=== PATIENT | female | born 1985 | race African-American/Black ===

== ENCOUNTER 2018-09-26 16:44 | Inpatient (IN) | payer OTHER ==
[~2018-09-26] VITALS: Ht 182.9 cm; Wt 131.6 kg
[2018-09-26 18:34] VITALS: BP 125/82; PULSE 71; RESP 17
[2018-09-26 19:04] VITALS: Ht 182.9 cm; Wt 131.6 kg
[2018-09-26] MEDS ORDERED: ACETAMINOPHEN 325 MG TAB PO PRN (19:30)
[2018-09-26] MEDS ORDERED: NACL 0.9% 3 ML SYG IV SCH (19:30)
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
[2018-09-26 20:00] VITALS: BP 123/68; PULSE 74; RESP 18
[2018-09-26] MEDS: PIPER-TAZO 3.375 GM IV (PMX) 100 ML IVPB SCH (20:42)
[2018-09-27] MEDS: PIPER-TAZO 3.375 GM IV (PMX) 100 ML IVPB SCH ×4 (00:59→17:53)
[2018-09-27 02:00] VITALS: BP 119/67; PULSE 70; RESP 18
[2018-09-27 08:12] VITALS: BP 129/75; PULSE 73; RESP 18
[2018-09-27] MEDS: IBUPROFEN 600 MG TAB PO PRN (09:11)
[2018-09-27] MEDS: ENOXAPARIN 40 MG/0.4 ML SYG SC SCH (09:12)
[2018-09-27] MEDS: traMADol 50 MG TAB PO PRN (14:26)
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
[2018-09-27 14:58] VITALS: BP 130/73; PULSE 80; RESP 17
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
[2018-09-27 20:24] VITALS: BP 116/57; PULSE 84; RESP 18
[2018-09-28] MEDS: PIPER-TAZO 3.375 GM IV (PMX) 100 ML IVPB SCH ×4 (00:33→18:32)
[2018-09-28 02:29] VITALS: BP 120/72; PULSE 68; RESP 20
[2018-09-28 08:03] VITALS: BP 120/80; PULSE 76; RESP 16
[2018-09-28] MEDS: traMADol 50 MG TAB PO PRN (09:16)
[2018-09-28] MEDS: ENOXAPARIN 40 MG/0.4 ML SYG SC SCH (09:18)
[2018-09-28] MEDS: HYDROCODONE/APAP (5/325) TAB PO PRN ×2 (12:32→18:28)
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
[2018-09-28 14:30] VITALS: BP 122/74; PULSE 72; RESP 16
[2018-09-28 20:25] VITALS: BP 116/70; PULSE 68; RESP 18
[2018-09-28] MEDS: ONDANSETRON 4 MG INJ IV PRN (20:57)
[2018-09-28] MEDS ORDERED: HYDROCODONE/APAP (5/325) TAB PO PRN (22:30)
[2018-09-29] VITALS (22 sets, daily range): BP systolic 104–144; BP diastolic 65–88; PULSE 52–70; RESP 10–77
[2018-09-29] MEDS: PIPER-TAZO 3.375 GM IV (PMX) 100 ML IVPB SCH ×4 (00:05→20:24)
[2018-09-29] MEDS: ENOXAPARIN 40 MG/0.4 ML SYG SC SCH (07:48)
[2018-09-29] MEDS: morphine 2 MG INJ IV PRN ×2 (12:39→20:24)
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
--- NOTE | 2018-09-29 16:55 | HPN ---
Date/Time of Note Date/Time of Note DATE: 09/29/18 TIME: 16:55 Interval H&P Admission Note Pt. seen H&P reviewed: No system changes CORBIN VELEZ DPM Sep 29, 2018 16:55
--- NOTE | 2018-09-29 17:12 | PREAC ---
Date/Time of Note Date/Time of Note DATE: 09/29/18 TIME: 17:11 Anesthesia Eval and Record Evaluation Time Pre-Procedure Interview DATE: 09/29/18 TIME: 17:11 Age 33 Sex female NPO: 8 hrs Preoperative diagnosis RIGHT LOWER EXTREMITY CELLULITIS Planned procedure DEBRIDEMENT OF RIGHT LOWER EXTREMITY CELLULITIS Past Medical History Past Medical History: Includes GI: Morbid obesity Surgery & Anesthesia Issues No known issue Meds Anticoagulation: No Beta Boni within 24 hr: No Reason Beta Boni not given: Pt. not on B-Boni Current Medications IV Flush (NS 3 ml) 3 ml PER PROTOCOL IV ; Start 09/26/18 at 19:30 Ondansetron HCl (Zofran Inj) 4 mg Q6H PRN IV NAUSEA/VOMITING Last administered on 09/28/18at 20:57; Admin Dose 4 MG; Start 09/26/18 at 19:30 Acetaminophen (Tylenol Tab) 650 mg Q6H PRN PO .PAIN 1-3 OR TEMP; Start 09/26/18 at 19:30 Ibuprofen (Motrin) 600 mg Q6H PRN PO .PAIN 1-3; Start 09/26/18 at 19:30 Enoxaparin Sodium (Lovenox) 40 mg DAILY SC Last administered on 09/28/18at 09:18; Admin Dose 40 MG; Start 09/27/18 at 09:00 Piperacillin Sod/ Tazobactam Sod 100 ml @ 200 mls/hr Q6 IVPB Last administered on 09/29/18at 12:35; Admin Dose 200 MLS/HR; Start 09/26/18 at 19:30 Acetaminophen/ Hydrocodone Bitart ([place] (5/325)) 1 tab Q4H PRN PO MODERATE PAIN LEVEL 4-6 Last administered on 09/28/18at 22:35; Admin Dose 1 TAB; Start 09/28/18 at 22:30 Morphine Sulfate (morphine) 1 mg Q6H PRN IV SEVERE PAIN LEVEL 7-10 Last administered on 09/29/18at 12:39; Admin Dose 1 MG; Start 09/29/18 at 12:00 Meds reviewed: Yes Allergies Coded Allergies: No Known Allergy (Unverified , 09/26/18) Allergies Reviewed: Yes Labs/Studies Labs Reviewed: Reviewed by anesthesiologist Result Diagram: 09/26/18193209/28/18518 test: Negative Pre-procedure Exam Last vitals Vital Signs Date Temp Pulse Resp B/P (MAP) Pulse Ox O2 O2 Flow FiO2 Time Delivery Rate 09/29/18 98.4 62 16 120/78 98 Room Air 14:00 (92) Airway: Adequate mouth opening, Adequate thyromental dist Mallampati: Mallampati II Teeth: Normal Lung: Normal Heart: Normal ASA Physical Status ASA physical status: 2 Emergency: None Planned Anesthetic General/MAC: LMA Planned Pain Management Parenteral pain med Pre-operative Attestations Prior to commencing anesthesia and surgery, the patient was re-evaluated, there was verification of: *The patient's identity *The results of appropriate recent lab work and preoperative vital signs *The above evaluation not changing prior to induction *Anesthetic plan, risk benefits, alternative and complications discussed with patient/family; questions answered; patient/family understands, accepts and wishes to proceed. ONEL WEEKS Sep 29, 2018 17:12
[2018-09-29] MEDS ORDERED: PROPOFOL 0 ML ONE (17:17)
[2018-09-29] MEDS ORDERED: LIDOCAINE 2% (SDV) 5 ML INJ ONE (17:17)
[2018-09-29] MEDS ORDERED: PROPOFOL 100 ML ONE (17:18)
[2018-09-29] MEDS ORDERED: DEXAMETHASONE 4 MG/ML 5 ML INJ ONE (17:42)
[2018-09-29] MEDS ORDERED: LIDOCAINE 1% (MPF) 30 ML INJ ONE (17:43)
[2018-09-29] MEDS ORDERED: BUPIVACAINE 0.25% (MPF) 30 ML INJ ONE (17:43)
[2018-09-29] MEDS ORDERED: ONDANSETRON 4 MG INJ ONE (17:43)
[2018-09-29] MEDS ORDERED: POLYMYXIN/BACITRACIN 1L IRRIG ONE (17:48)
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
--- NOTE | 2018-09-29 18:18 | PAC ---
Date/Time of Note Date/Time of Note DATE: 09/29/18 TIME: 18:17 Post-Anesthesia Notes Post-Anesthesia Note Last documented vital signs Vital Signs Date Temp Pulse Resp B/P (MAP) Pulse Ox O2 O2 Flow FiO2 Time Delivery Rate 09/29/18 98.4 62 16 120/78 98 Room Air 1817 (92) Activity: WNL Respiratory function: WNL Cardiovascular function: WNL Mental status: Baseline Pain reasonably controlled: Yes Hydration appropriate: Yes Nausea/Vomiting absent: Yes ONEL WEEKS Sep 29, 2018 18:18
[2018-09-29] MEDS ORDERED: HYDROmorphONE 1 MG/5 ML IV SYRINGE IV PRN ×3 (18:30)
[2018-09-29] MEDS ORDERED: EPHEDrine SULFATE 50 MG/5 ML SYG IV PRN (18:30)
[2018-09-29] MEDS ORDERED: MIDAZOLAM 1 MG/ML 2 ML INJ IV PRN (18:30)
[2018-09-29] MEDS ORDERED: METOCLOPRAMIDE 10 MG INJ IV PRN (18:30)
[2018-09-29] MEDS ORDERED: ALBUTEROL 0.083% (NEB) 2.5 MG/3 ML AMP HHN PRN (18:30)
[2018-09-29] MEDS ORDERED: ONDANSETRON 4 MG INJ IV PRN (18:30)
[2018-09-29] MEDS ORDERED: DIPHENHYDRAMINE 50 MG INJ IV PRN (18:30)
[2018-09-29] MEDS ORDERED: MEPERIDINE 25 MG INJ IV PRN (18:30)
[2018-09-29] MEDS ORDERED: LABETALOL HCL 20MG INJ IV PRN (18:30)
[2018-09-29] MEDS ORDERED: FENTAnyl 50 MCG/ML VIAL IV PRN ×3 (18:30)
[2018-09-29] MEDS ORDERED: OXYCODONE/ACETAMINOPHEN (5/325) TAB PO PRN ×2 (18:30)
[2018-09-29] MEDS ORDERED: hydrALAzine 20 MG INJ IV PRN (18:30)
[2018-09-29] MEDS: ONDANSETRON 4 MG INJ IV PRN (22:30)
[2018-09-29] MEDS: HYDROmorphONE 1 MG/ML SYG IV PRN (23:18)
[2018-09-30] MEDS: PIPER-TAZO 3.375 GM IV (PMX) 100 ML IVPB SCH ×4 (00:11→17:13)
[2018-09-30 01:57] VITALS: BP 121/71; PULSE 61; RESP 18
[2018-09-30] MEDS: HYDROmorphONE 1 MG/ML SYG IV PRN ×5 (03:35→20:42)
[2018-09-30 07:42] VITALS: BP 131/81; PULSE 62; RESP 18
[2018-09-30] MEDS: ONDANSETRON 4 MG INJ IV PRN ×2 (07:44→11:49)
[2018-09-30 08:00] VITALS: BP 137/94; PULSE 86; RESP 20
[2018-09-30] MEDS: ENOXAPARIN 40 MG/0.4 ML SYG SC SCH (08:42)
[2018-09-30 14:00] VITALS: BP 130/84; PULSE 84; RESP 20
[2018-09-30] MEDS: IBUPROFEN 600 MG TAB PO PRN (14:59)
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
[2018-09-30] MEDS ORDERED: TRIMETHOBENZAMIDE 100 MG/ML VIAL IM PRN (15:30)
[2018-09-30] MEDS: ONDANSETRON INJ 8 MG in SOD CHLORIDE 0.9% 50 ML IV PRN ×2 (16:11→20:42)
[2018-09-30] MEDS ORDERED: HYDROCODONE/APAP (5/325) TAB PO PRN (16:30)
[2018-09-30] MEDS ORDERED: HYDROmorphONE 1 MG/ML SYG IV PRN (17:30)
[2018-09-30] MEDS ORDERED: ONDANSETRON 4 MG INJ IV PRN (18:00)
[2018-09-30 21:28] VITALS: BP 125/67; PULSE 62; RESP 18
[2018-10-01] MEDS: PIPER-TAZO 3.375 GM IV (PMX) 100 ML IVPB SCH ×5 (00:10→23:29)
[2018-10-01 02:50] VITALS: BP 106/69; PULSE 55; RESP 18
[2018-10-01 08:00] VITALS: BP 116/75; PULSE 84; RESP 20
[2018-10-01] MEDS: ONDANSETRON INJ 8 MG in SOD CHLORIDE 0.9% 50 ML IV PRN ×3 (08:03→20:23)
[2018-10-01] MEDS: HYDROmorphONE 4 MG TAB PO PRN ×2 (08:04→20:23)
[2018-10-01] MEDS: ENOXAPARIN 40 MG/0.4 ML SYG SC SCH (09:39)
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
[2018-10-01] MEDS: HYDROmorphONE 1 MG/ML SYG IV PRN (12:06)
[2018-10-01 14:00] VITALS: BP 121/75; PULSE 93; RESP 20
[2018-10-01] MEDS ORDERED: MAGNESIUM HYDROXIDE 30ML CUP PO PRN (16:00)
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
[2018-10-01] MEDS ORDERED: METOCLOPRAMIDE 10 MG INJ IV PRN (17:30)
[2018-10-01 20:23] VITALS: BP 115/68; PULSE 68; RESP 18
[2018-10-02] MEDS: HYDROmorphONE 4 MG TAB PO PRN ×3 (01:14→14:40)
[2018-10-02] MEDS: ONDANSETRON INJ 8 MG in SOD CHLORIDE 0.9% 50 ML IV PRN ×3 (01:14→14:40)
[2018-10-02 03:22] VITALS: BP 101/52; PULSE 62; RESP 18
[2018-10-02] MEDS: PIPER-TAZO 3.375 GM IV (PMX) 100 ML IVPB SCH ×3 (05:29→18:00)
[2018-10-02 08:13] VITALS: BP 114/71; PULSE 53; RESP 18
[2018-10-02] MEDS: ENOXAPARIN 40 MG/0.4 ML SYG SC SCH (09:39)
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
[2018-10-02 14:13] VITALS: BP 111/69; PULSE 53; RESP 18
--- NOTE | 2018-10-02 15:37 | PDOCDIS ---
Discharge Instructions CONDITION [id number] Patient Condition: [id number] Stable HOME CARE INSTRUCTIONS: [id number] Diet Instructions: [id number] Low Fat /Cholesterol ACTIVITY: [id number] Activity Restrictions: [id number] Slowly Increase Activity Rest between Activity Avoid heavy lifting FOLLOW UP/APPOINTMENTS Follow-up Plan Please keep your wound VAC in place as instructed by the surgery team that saw you here in the hospital, continue wound care at home through home health nursing. Please take your medications as prescribed and follow-up with your doctor in the clinic in the next 1 week. ALEXANDER LLOYD Oct 02, 2018 15:37
[2018-10-02] MEDS ORDERED: HYDR4TAB51 PO (15:39)
[2018-10-02] MEDS ORDERED: METO5TAB58 PO (15:39)
[2018-10-02] MEDS ORDERED: ONDA8TAB9 PO (15:39)
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
== END 2018-10-02 19:15 | disposition home health service (06) | DRG 572 ==
LOC: PP2 17:53
PROVIDERS: ADMIT Internal Medicine; ATTEND Hospitalist
PROC: 0JBN0ZZ Excision of Right Lower Leg Subcutaneous Tissue and Fascia, Open Approach (ICD-10-PCS; principal; 2018-09-29 16:00)
DX: L97.819 Non-pressure chronic ulcer of other part of right lower leg with unspecified severity (principal); E66.9 Obesity, unspecified; L97.219 Non-pressure chronic ulcer of right calf with unspecified severity; Z68.39 Body mass index [BMI] 39.0-39.9, adult; Z87.828 Personal history of other (healed) physical injury and trauma
CPT/HCPCS: 71046; 73590; 73718; 80048; 80053; 83036; 83735; 84100; 84443; 84703; 85025; 85610; 85730; 87070; 87102; 88304; 93005; 93922; 93971; 97161; J1100; J1170; J1650; J2270; J2405; J2543; J3010; J3250